=== PATIENT | male | born 1970 | race Caucasian/White ===

== ENCOUNTER → 2020-12-14 | Outpatient (CLI) | payer OTHER ==
[~2020-12-14] VITALS: Ht 175.3 cm; Wt 104.3 kg
[~2020-12-14] MED LIST: AUGMENTIN 875-1 EACH PO; CLARITIN10 MG PO; FLONASE 0.05% N16 GM
== END ==
LOC: OPSV 10:00
DX: G35 Multiple sclerosis (principal)
CPT/HCPCS: 96365; 96366; 96375; J2350; J2930; J7030

== ENCOUNTER → 2021-06-28 | Outpatient (CLI) | payer MEDICARE, OTHER | LOC: OPSV 08:00 | DX: G35 Multiple sclerosis (principal) | CPT/HCPCS: 96375; 96413; 96415; J2350; J2930; J7030 ==

== ENCOUNTER → 2021-12-26 | Outpatient (CLI) | payer MEDICARE, OTHER ==
[~2021-12-26] VITALS: Ht 175.3 cm; Wt 104.3 kg
== END ==
LOC: OPSV 07:56
DX: G35 Multiple sclerosis (principal)
CPT/HCPCS: 96375; 96413; 96415; J2350; J2930; J7030

== ENCOUNTER → 2022-06-28 | Outpatient (CLI) | payer MEDICARE, OTHER ==
[~2022-06-28] VITALS: Ht 175.3 cm; Wt 104.3 kg
== END ==
LOC: OPSV 08:00
DX: G35 Multiple sclerosis (principal)
CPT/HCPCS: 96375; 96413; 96415; J2350; J2930; J7030